=== PATIENT | female | born 1975 | race Caucasian/White ===

== ENCOUNTER → 2024-02-06 | Outpatient (CLI) | payer OTHER, SELFPAY ==
--- NOTE | 2024-02-06 08:45 | XR_ITS ---
Examination: Breast ultrasound complete, bilateral Date and time of exam: February 06, 2024 0902 hours INDICATIONS: History breast implants, diagnosis diffuse cystic mastopathy Technique: Real-time grayscale ultrasonographic imaging bilateral breasts, including all 4 quadrants as well as nipple retroareolar and axillary regions. Findings: No cystic or solid mass involving either breast IMPRESSION: BI-RADS Category 1: Negative studies
--- NOTE | 2024-02-06 09:45 | XR_ITS ---
Examination: Screening digital mammography, bilateral Computer aided detection 3-D breast Tomosynthesis, bilateral Date and time of exam: February 06, 2024 0909 hours Compared to mammograms dating to March 14, 2018 Indication: Screening Technique: Nonmagnified MLO, CC views of the breasts to been obtained, reconstructed from 3-D Tomosynthesis images. R2 computer aided detection program utilized for evaluation of suspicious masses and/or abnormal calcifications. 3-D Tomosynthesis images obtained. Findings: Scattered areas of fibroglandular density. Benign calcifications. No interval suspicious masses Stable appearing implants Impression: BI-RADS category II: Benign Findings. Recommend 1 year follow-up mammogram.
== END | disposition home or self-care (01) ==
PROVIDERS: PCP Internal Medicine; Referring Provider Obstetrics & Gynecology; Visit Provider Obstetrics & Gynecology
DX: Z12.31 Encounter for screening mammogram for malignant neoplasm of breast (principal); R92.323 Mammographic fibroglandular density, bilateral breasts; R92.1 Mammographic calcification found on diagnostic imaging of breast; Z98.82 Breast implant status
CPT/HCPCS: 76641; 77063; 77067

== ENCOUNTER 2024-08-16 08:16 | Outpatient (AMB) | payer OTHER, SELFPAY ==
--- NOTE | 2024-08-16 08:14 | AMB.GYNCLNOT ---
Vital Signs 08/16/24 08:24 Height 1.7 m Height Method Stated Weight 64.467 kg Weight Measurement Method Standing Scale BMI 22.2 BP 119/77 Blood Pressure Source Automatic Cuff Blood Pressure Location Right Upper Arm Position Sitting Respiration 17 Pulse 71 Pulse Source Monitor Temp 97.8 F Temp Source Temporal Artery Scan Pulse Oximetry (%) 98 Oxygen Delivery Method Room Air Allergies/Home Meds Allergies & Medications Allergies No Known Allergies Allergy (Verified 08/16/24 08:26) Medication Reconciliation clobetasol 0.05 % topical ointment 1 applic topical QHS 4 weeks #60 grams 08/16/24 [Rx] estradiol 0.0375 mg/24 hr semiweekly transdermal patch transdermal 08/16/24 [History Confirmed 08/16/24] levothyroxine 125 mcg capsule 125 mcg PO QDAY 08/16/24 [History Confirmed 08/16/24] liothyronine 5 mcg tablet 5 mcg PO QDAY 08/16/24 [History Confirmed 08/16/24] sertraline 50 mg tablet 50 mg PO QDAY 08/16/24 [History Confirmed 08/16/24] tirzepatide (weight loss) 15 mg/0.5 mL subcutaneous pen injector (Zepbound) 15 mg subcut QWEEK 08/16/24 [History] Intake Visit Data Collection New Patient or Established: New Patient (never been to [facility]) Reason for Visit:: ANNUAL EXAM Seen by Clinical Staff ONLY (RN/MA): No Powder Shoveler Required: No Do You Feel Safe at Home: Yes Authorities Contacted: N/A PCP or OBGYN visit in last 3 months: No Hx Now: No Are you currently on any form of Control: Yes (IUD MIRENA ) Pain Present Currently: No Pain Scale Used: Chatterjee-Cabral/Numerical Pain scale:: 0 Smoking Status Smoking Status: Never smoker Rd Manager history Rd Manager History Menstrual regularity: irregular Flow: light Monthly: No Age at menarche: 16 Menopausal: No Currently sexually active: Yes Additional comments: NO MENSTRUAL CYCLE PATIENT ON IUD MIRENA [employer]IM[employer]S [employer] TRAINERS: Past Medical History Past Medical History: Yes Hx Hypothyroidism Additional Operations/Hospitalizations (year & reason): 2001 2004 Breast augmentation with lift 2010 Dr. Lawton Mirena IUD placed with Dr. Oscar 04/2019 Other Relevant History: Depression on Zoloft Hypothyroidism on levothyroxine 125 UG and 5 UG Lyothyroxine a day Perimenopause on estradiol patch 0.0375 daily History of obesity on Zepbound 30 units a week Questionnaires Covid-19 Vaccine Questionnaire Has patient been vacinated for Covid-19 Have you been vacinated for Covid-19: Yes PHQ-9 PHQ-2 Over the last 2 weeks, how often have you been bothered by any of the following problems? 1. Little interest or pleasure in doing things: not at all 2. Feeling down, depressed, or hopeless: not at all Total score: 0 PHQ-9 3. Trouble falling or staying asleep, or sleeping too much: Not at all 4. Feeling tired or having little energy: Not at all 5. Poor appetite or overeating: Not at all 6. Feeling bad about yourself - or that you are a failure or have let yourself or your family down: Not at all 7. Trouble concentrating on things, such as reading the newspaper or watching television: Not at all 8. Moving or speaking so slowly that other people could have noticed? - Or the opposite - being so fidgety or restless that you have been moving around a lot more than usual: not at all 9. Thoughts that you would be better off or of hurting yourself in some way: Not at all Total score: 0 If you checked off any problems, how difficult have these problems made it for you to do your work, take care of things at home, or get along with other people?: not difficult at all Source: Developed by Drs. Aidan Gruber, Leeanna Page, Willie Trent and colleagues, with an educational javon from [employer]. 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 Her is a citrus mora. 3 kids. Tobacco History Smoking Status: Never smoker Second Hand Smoke Exposure: No Alcohol History Alcohol Intake: Never Domestic Abuse History Do You Feel Safe at Home: Yes History of Present Illness HPI Narrative The patient is a 49-year-old -0-0-3 status post x 2 in the past. The first baby was born in 2001 and was a girl the second babies were born in 2004 and were: twins a boy and a girl. The patient used to see Dr. Taylor in [place] and then [facility] then Leisa Medrano and then most recently Dr. Oscar. She presents here for an annual exam. 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 Her used to play professional baseball but now is a citrus mora. The patient's 19-year-old son is playing baseball her 19-year-old daughter is studying to be an middleware architect. Her oldest daughter wants to get a PhD and do some type of stem cell research. The patient has an IUD in place since 04/2019. She is on an estrogen patch and is going to see some provider at [facility] for some type of testosterone cream. She would like a refill on clobetasol as she gets flares of lichen sclerosis. Dr. Tristan Conway is her primary care and would like a copy of her records. The patient states she usually gets a yearly mammogram and breast ultrasound as she has dense breasts. Today she has no gynecological complaints specifically no hot flashes or night sweats. She is interestingly on Zepbound. She states she is lost 20 pounds on this. Her BMI is 22. Review of Systems Review of Systems Narrative Review of Systems: No hot flashes ,no night sweats ,no vaginal dryness. Some decreased libido. No dysuria, no joint pain, some irregular bleeding with Mirena IUD in place. No abnormal discharge, no dyspareunia ,no breast tenderness or lumps. Exam General Limitations: no limitations General Appearance: alert, in no apparent distress, comfortable, cooperative, well groomed and other (Appears thin) Neck Neck exam: Present normal inspection, full ROM and trachea midline Chest Chest inspection: Present normal inspection and symmetric chest wall rise Exp Chest Breast: bilateral: other (Normal breast exam bilaterally. Large implants in place.) Resp Respiratory exam: Present normal lung sounds bilaterally Card Cardiovascular exam: Present regular rate, normal rhythm and normal heart sounds Abdominal Abdominal exam: Present soft, normal bowel sounds and scar (Pfannenstiel scar present) External exam: Present normal external exam Speculum exam: Present normal speculum exam and other (IUD strings visualized and 1-1/2 inches outside her external os) Bimanual exam: Present normal bimanual exam (Uterus anteverted no adnexal masses or tenderness) Extremities Extremities exam: Present normal inspection and full ROM Psych Psychiatric exam: Present normal affect and normal mood Skin Skin exam: Present warm, dry, intact and normal color Office Procedures OB Clinic LOC & Office Proc's Nursing/Assessment Patient Status: Initial/New Patient OB Clinic Nursing Assessment: Medication Reconciliation, Update PMH in EMR and Vital Signs OB Clinic Coordination of Care: Complex Care and Chronic Disease 1-5, Consent,records obtained, informed consent, Education Simp Pt/Fam, Lab and Imaging orders and Staff clarify orders Miscellaneous Interventions: Breast Exam and Pelvic/Pap Smear Set up New Patient Charge New Patient Point Assignment: [id number] In Clinic Procedures Pap Smear: Yes Assessment & Plan Diagnosis / Problem List (1) Women's annual routine gynecological examination: Status: Acute Assessment and Plan: Pap with cotesting to HPV performed, breast exam done and encouraged. All lab work is ordered through Dr. Conway. He has screened her for colon cancer. All labs are up-to-date per patient. Mammogram and breast ultrasound here at [facility] (2) Dense breasts, unspecified: Status: Acute Qualifiers: Mammographic dense breast tissue type: extremely dense Laterality: bilateral Qualified Code(s): R92.343 - Mammographic extreme density, bilateral breasts Assessment and Plan: Mammogram and breast ultrasound ordered. (3) IUD (intrauterine device) in place: Status: Acute Assessment and Plan: Placed 2019. Remove by [address] CON[address] INSPECTOR: Papsmear Pap Smear Procedure Chaparone in room during procedure?: No Pre-op diagnosis general: Annual wellness exam Post-op diagnosis procedure note: Same Procedure Notes:: Pap with cotesting to HPV performed Papsmear completed: yes
[2024-08-16 08:24] VITALS: BP 119/77; PULSE 71; RESP 17; TEMP 36.6; O2SAT 98; BMI 22.2
== END 2024-08-16 09:14 | disposition home or self-care (01) ==
LOC: HODSOBC 08:16
PROVIDERS: PCP Internal Medicine; Referring Provider Internal Medicine; Supervising Provider Obstetrics & Gynecology; Visit Provider Obstetrics & Gynecology
DX: Z01.419 Encounter for gynecological examination (general) (routine) without abnormal findings (principal); Z11.51 Encounter for screening for human papillomavirus (HPV); R92.30 Dense breasts, unspecified; Z97.5 Presence of (intrauterine) contraceptive device; Z98.82 Breast implant status
CPT/HCPCS: 99213; Q0091; G0463

== ENCOUNTER → 2025-02-11 | Outpatient (CLI) | payer OTHER, SELFPAY ==
--- NOTE | 2025-02-11 | XR_ITS ---
Examination: Diagnostic digital mammography, bilateral Computer aided detection 3-D breast Tomosynthesis, bilateral Date and time of exam: 02/11/2025, 8:05 a.m. Comparisons: February 2018 through January 2024 Indications: Breast implants, dense breasts Technique: Nonmagnified MLO, CC views of the breasts to been obtained, reconstructed from 3-D Tomosynthesis images. R2 computer aided detection program utilized for evaluation of suspicious masses and/or abnormal calcifications. 3-D Tomosynthesis images obtained. Findings: There are scattered areas of fibroglandular density. Bilateral subpectoral saline implants appear intact. No evidence of abnormal masses or suspicious calcifications. Impression: BI-RADS category 2: Benign findings Recommend 1 year follow-up mammogram
--- NOTE | 2025-02-11 08:00 | XR_ITS ---
Examination: Breast ultrasound complete, bilateral Date and time of exam: February 11, 2025, 0836 hours INDICATIONS: Dense breast architecture on mammography, screening Technique: Real-time grayscale ultrasonographic imaging bilateral breasts, including all 4 quadrants as well as nipple retroareolar and axillary regions. Findings: Sonographic images right and left breast demonstrate no cystic or solid masses IMPRESSION: BI-RADS Category 1: Negative studies
== END | disposition home or self-care (01) ==
LOC: CDIM 07:45
PROVIDERS: PCP Internal Medicine; Referring Provider Obstetrics & Gynecology; Visit Provider Obstetrics & Gynecology
DX: R92.323 Mammographic fibroglandular density, bilateral breasts (principal)
CPT/HCPCS: 76641; 77062; 77066; G0279